=== PATIENT | female | born 1990 | race Caucasian/White ===

== ENCOUNTER 2020-09-02 14:41 | Outpatient (REF) | payer OTHER, SELFPAY | END 2020-09-02 14:42 | disposition home or self-care (01) | LOC: HO.LAB 14:41 | PROVIDERS: PCP Internal Medicine; Visit Provider Internal Medicine | DX: Z20.828 Contact with and (suspected) exposure to other viral communicable diseases (principal) | CPT/HCPCS: 87635 ==

== ENCOUNTER 2022-06-08 13:46 | Outpatient (REF) | payer OTHER, SELFPAY ==
[2022-06-09 08:02] LABS: HBS Num1 17.98 mIU/mL (0-7.99); ~Hepatitis B Surface Antibody REACTIVE (Nonreactive)
[2022-06-10 08:56] LABS: Rubella IgG Antibody 2.33 Index
[2022-06-10 23:02] LABS: TS Negative Control Passed; TS Panel A 0; TS Panel B 1; TS Positive Control Passed; TSpotTB Negative (Negative)
== END 2022-06-08 13:47 | disposition home or self-care (01) ==
LOC: HO.LAB 13:46
PROVIDERS: PCP Internal Medicine; Visit Provider Internal Medicine
DX: Z01.84 Encounter for antibody response examination (principal)
CPT/HCPCS: 36415; 86481; 86706; 86735; 86762; 86765; 86787

== ENCOUNTER 2023-01-10 10:40 | Outpatient (REF) | payer OTHER, SELFPAY ==
[2023-01-10 14:12] LABS: CT PCR NOT DETECTED (Not Detect.); NG PCR NOT DETECTED (Not Detect.)
[2023-01-11 12:30] LABS: BV Int Neg Control Negative (Negative); BV Int Pos Control Positive (Positive)
[2023-01-14 00:38] LABS: HPV 16 RNA NOT DETECTED (NOT DETECTED); HPV mRNA E6/E7 rflx Detected (Not Detected)
== END 2023-01-10 10:41 | disposition home or self-care (01) ==
LOC: HO.LNP 10:40
PROVIDERS: PCP Internal Medicine; Visit Provider Advanced Practice Midwife
DX: Z01.419 Encounter for gynecological examination (general) (routine) without abnormal findings (principal); N92.0 Excessive and frequent menstruation with regular cycle; N90.89 Other specified noninflammatory disorders of vulva and perineum; Z11.3 Encounter for screening for infections with a predominantly sexual mode of transmission; Z87.42 Personal history of other diseases of the female genital tract
CPT/HCPCS: 0353U; 87480; 87510; 87624; 87625; 87660; 88142

== ENCOUNTER 2023-01-10 14:56 | Outpatient (REF) | payer OTHER, SELFPAY ==
[2023-01-10 16:03] LABS: Hematocrit 36.2 % (37.0-47.0); Mean Corpuscular HGB Conc 30.4 g/dl (31.0-35.0); Mean Corpuscular Volume 75.6 fL (80.0-98.0); Mean Platelet Volume 10.9 fL (9.4-12.3); Platelet Count 328 X10*3/uL (160-400); Red Blood Count 4.79 X10*6/uL (4.20-5.50); Red Cell Distribution Width 15.4 % (11.0-16.0); White Blood Count 9.9 X10*3/uL (4.8-10.8)
[2023-01-10 16:45] LABS: Thyroid Stimulating Hormone 0.64 uIU/mL (0.32-4.0)
[2023-01-11 14:11] LABS: HBsAGNum1 0.28 S/CO (0.00-0.99); HIV AB/AG Nonreactive (Nonreactive); HIV Num 1 0.07 S/CO (0.00-0.99); Hepatitis B Surface Antigen Negative (Negative); ~HepC Num1 0.33 S/CO (0.00-0.79); ~Hepatitis C Antibody Nonreactive (Nonreactive)
[2023-01-11 14:27] LABS: Syphilis Screen Nonreactive (Nonreactive)
== END 2023-01-10 14:57 | disposition home or self-care (01) ==
LOC: HO.LAB 14:56
PROVIDERS: PCP Internal Medicine; Visit Provider Advanced Practice Midwife
DX: N90.89 Other specified noninflammatory disorders of vulva and perineum (principal); N92.0 Excessive and frequent menstruation with regular cycle; Z87.42 Personal history of other diseases of the female genital tract; Z11.3 Encounter for screening for infections with a predominantly sexual mode of transmission
CPT/HCPCS: 36415; 84443; 85027; 86780; 86803; 87340; 87389

== ENCOUNTER 2023-03-02 08:23 | Outpatient (REF) | payer OTHER, SELFPAY | END 2023-03-02 08:24 | disposition home or self-care (01) | LOC: HO.LNP 08:23 | PROVIDERS: PCP Internal Medicine; Visit Provider Obstetrics & Gynecology | DX: R87.610 Atypical squamous cells of undetermined significance on cytologic smear of cervix (ASC-US) (principal); R87.810 Cervical high risk human papillomavirus (HPV) DNA test positive; Z32.02 Encounter for pregnancy test, result negative | CPT/HCPCS: 57454; 81025; 88305 ==

== ENCOUNTER → 2023-04-26 11:18 | Outpatient (BNVA) | payer OTHER, SELFPAY | PROVIDERS: PCP Internal Medicine; Visit Provider Obstetrics & Gynecology | DX: R87.610 Atypical squamous cells of undetermined significance on cytologic smear of cervix (ASC-US) (principal); R87.810 Cervical high risk human papillomavirus (HPV) DNA test positive | CPT/HCPCS: 99212 ==

== ENCOUNTER 2023-05-12 17:16 | Outpatient (REF) | payer OTHER, SELFPAY ==
[2023-05-12 18:21] LABS: Influenza A PCR NEGATIVE (Negative); Influenza B PCR NEGATIVE (Negative); Resp Syncy Virus RNA Qual PCR NEGATIVE (Negative); SARS COV2 PCR INHOUSE NEGATIVE (Negative)
== END 2023-05-12 17:17 | disposition home or self-care (01) ==
LOC: HO.LNP 17:16
PROVIDERS: Visit Provider Nurse Practitioner Family
DX: Z20.822 Contact with and (suspected) exposure to COVID-19 (principal); R09.89 Other specified symptoms and signs involving the circulatory and respiratory systems
CPT/HCPCS: 0241U

== ENCOUNTER 2023-05-16 15:49 | Outpatient (REF) | payer OTHER, SELFPAY | END 2023-05-16 15:50 | disposition home or self-care (01) | LOC: HO.LNP 15:49 | PROVIDERS: PCP Internal Medicine; Visit Provider Obstetrics & Gynecology | DX: N90.7 Vulvar cyst (principal); Z32.00 Encounter for pregnancy test, result unknown | CPT/HCPCS: 56605; 81025; 88305 ==